=== PATIENT | male | born 1975 | race Caucasian/White ===

== ENCOUNTER 2024-08-04 19:41 | Emergency (ER) | payer OTHER ==
[~2024-08-04] VITALS: Ht 175.3 cm; Wt 99.3 kg
[~2024-08-04 19:41] MED LIST: ATORVASTATIN CA20 MG PO; DIAZEPAM10 MG PO; TRAZ150T57 PO
[2024-08-04 19:59] VITALS: BP 136/99
[2024-08-04] MEDS ORDERED: Ketorolac Tromethamine 10 MG Tab PO ONE ×2 (20:35→22:10)
[2024-08-04] MEDS ORDERED: Amoxicillin/Clavulanate K 875 MG Tab PO ONE (22:10)
[2024-08-04] MEDS ORDERED: AMOCLA875 PO (22:19)
== END 2024-08-04 22:24 | disposition home or self-care (01) ==
LOC: ER 19:41
DX: K08.89 Other specified disorders of teeth and supporting structures (principal); G47.30 Sleep apnea, unspecified; F17.200 Nicotine dependence, unspecified, uncomplicated; Z79.899 Other long term (current) drug therapy
CPT/HCPCS: 99282; A9270

== ENCOUNTER 2024-08-06 07:12 | Emergency (ER) | payer OTHER ==
[~2024-08-06] VITALS: Ht 175.3 cm; Wt 98.9 kg
[~2024-08-06 07:12] MED LIST changes: +AMOCLA875 PO
[2024-08-06] MEDS ORDERED: Ketorolac Tromethamine 15mg Vial IV ONE (09:05)
[2024-08-06] MEDS ORDERED: NS 1,000 ML IV SCH (09:05)
[2024-08-06] MEDS ORDERED: Ondansetron HCl 2 MG / ML 2ML Vial IV ONE (09:05)
[2024-08-06] MEDS ORDERED: HYDROmorphone HCl/Pf 1MG SYR IV ONE (09:40)
[2024-08-06 10:45] VITALS: BP 127/81
== END 2024-08-06 11:16 | disposition home or self-care (01) ==
LOC: ER 07:12
DX: K04.7 Periapical abscess without sinus (principal); E78.5 Hyperlipidemia, unspecified; F17.210 Nicotine dependence, cigarettes, uncomplicated; Z88.1 Allergy status to other antibiotic agents; Z88.8 Allergy status to other drugs, medicaments and biological substances
CPT/HCPCS: 96374; 96375; 99283-25; J1171; J1885; J2405; J7030